=== PATIENT | female | born 1975 | race Caucasian/White ===

== ENCOUNTER 2025-08-05 06:00 | Day surgery (SDC) | payer OTHER ==
[2025-08-03 11:13] LABS: BASO % 0.6 % (0.1-1.2); EOS # 0.22 (0.04-0.54); EOS % 3.0 % (0.7-7.0); LYMPH # 1.38 (1.18-3.74); LYMPH % 19.1 % (19.3-53.1); MEAN PLATELET VOLUME 9.70 fl (9.4-12.4); MONO # 0.43 (0.24-0.82); MONO % 5.9 % (4.7-12.5); NEUT # 5.13 (1.56-6.13); NEUT % 70.8 % (34.0-71.1); RED CELL DISTRIBUTION WIDTH 16.1 % (11.6-14.4)
[2025-08-03 11:17] VITALS: BP 116/79
[2025-08-03 11:33] LABS: URINE APPEARANCE Cloudy; URINE BILIRRUBIN Negative (NEGATIVE); URINE BLOOD Negative; URINE COLOR Yellow; URINE GLUCOSE Negative (NEGATIVE); URINE KETONE Negative (NEGATIVE); URINE LEUKOCYTE Negative; URINE NITRATE Negative; URINE PROTEIN 30 (NEGATIVE); URINE UROBILINOGEN 0.2 E.U./dl
[2025-08-03 11:34] LABS: URINE BACTERIA 4263.4 uL (0.0-1933); URINE EPITHELIAL CELLS 183.2 uL (0.0-38.8); URINE RBC 17.0 uL (0.0-20.8); URINE WBC 78.6 uL (0.0-23.2)
[2025-08-03 11:45] LABS: INR 1.02
[2025-08-03 11:53] LABS: URINE CAST 0.00 uL (0.0-1.40); URINE CRYSTALS FEW /HPF
[2025-08-03 12:14] LABS: ALT/SGPT 35.0 U/L (12-78); AST/SGOT 16.0 U/L (15-37); BILIRUBIN TOTAL 0.5 mg/dL (0.3-1.2); BUN CREA RATIO 19.0 (7.0-25.0); CREATININE SERUM 0.69 mg/dL (0.55-1.02); GFR 89.34; GLOBULINA 3.7 G/DL (2.4-3.5); GLUCOSE FASTING 86.0 mg/dL (65-100); OSMOLALITY SERUM 284.0 MOSM/KG (275-295)
[~2025-08-05] VITALS: Ht 149.9 cm; Wt 77.1 kg
[~2025-08-05 06:00] MED LIST: PERCOCET 5/3251 TAB PO; PROTONIX40 MG PO
[2025-08-05] MEDS ORDERED: BUPIVACAINE HCL/Mpf 0.5% 10ML VIAL ONE (06:56)
[2025-08-05] MEDS ORDERED: LIDOCAINE HCL 1%/EPINEPHRINE 20ML VIAL IJ ONE (06:56)
[2025-08-05] MEDS ORDERED: HEMOSTATIC MATRIX 1 KIT KIT TOP ONE (06:56)
[2025-08-05] MEDS ORDERED: POVIDONE-IODINE 118 ML BOTT TOP ONE (06:56)
[2025-08-05] MEDS ORDERED: DIBUCAINE 30 GM TUBE ONE ×2 (06:56→06:57)
[2025-08-05] MEDS ORDERED: CEFTRIAXONE SODIUM 2,000 MG VIAL ONE (07:02)
[2025-08-05] MEDS ORDERED: METRONIDAZOLE/SODIUM CHLORIDE 500 MG/100 ML PIGGYBACK IV ONE (07:02)
[2025-08-05] MEDS ORDERED: CELECOXIB200 MG PO (13:41)
[2025-08-05] MEDS ORDERED: INTESTINEX680 M1 PO (13:41)
[2025-08-05] MEDS ORDERED: PERCOCET 5-3251 EACH PO (13:41)
[2025-08-05] MEDS ORDERED: NEURONTIN300 MG PO (13:41)
== END 2025-08-05 16:00 | disposition home or self-care (01) ==
LOC: CIR.AMB 06:00
PROVIDERS: ATTEND Surgery
DX: K64.2 Third degree hemorrhoids (principal); K62.3 Rectal prolapse; K64.4 Residual hemorrhoidal skin tags; K62.5 Hemorrhage of anus and rectum